=== PATIENT | female | born 1990 ===

== ENCOUNTER 2024-11-14 13:51 | Outpatient (CLI) | payer OTHER, SELFPAY ==
[2024-11-14 14:20] LABS: Appearance Urine UA CLEAR; Bilirubin Urine UA NEGATIVE (NEGATIVE); Color Urine UA YELLOW; Glucose Urine UA NEGATIVE (Negative); Ketones Urine UA NEGATIVE (NEGATIVE); Leukocyte Esterase Urine UA NEGATIVE (NEGATIVE); Nitrite Urine UA NEGATIVE (Negative); Occult Blood Urine UA NEGATIVE (Negative); Protein Urine UA NEGATIVE (Negative); Urobilinogen Urine UA 0.2 E.U./dL (0.2)
[2024-11-14 14:27] LABS: pH Urine UA 7.5 (4.5-8.0)
[2024-11-14 14:30] LABS: Bacteria Urine Occasional (0-1); Culture Indicated Urine Cult Not Indicated; RBC Urine None Seen (0-5/HPF); Squamous Epithelial Cell Urine 0-1 /HPF (0-5/HPF); Urine Volume 10mL (spun); WBC Urine 0-1/HPF (0-5/HPF)
== END 2024-11-14 14:50 | disposition home or self-care (01) ==
LOC: LABOR 14:03 → OB 11-15 07:14
PROVIDERS: PCP Student in an Organized Health Care Education/Training Program; Referring Provider Student in an Organized Health Care Education/Training Program; Visit Provider Student in an Organized Health Care Education/Training Program
DX: O26.892 Other specified pregnancy related conditions, second trimester (principal); H53.8 Other visual disturbances; R11.10 Vomiting, unspecified; R10.9 Unspecified abdominal pain; R51.9 Headache, unspecified; Z3A.21 21 weeks gestation of pregnancy
CPT/HCPCS: 81001; G0378; G0379